=== PATIENT | female | born 1990 | race Caucasian/White ===

== ENCOUNTER 2017-08-30 19:09 | Emergency (ER) | payer OTHER ==
[2017-08-30] MEDS: ACETAMINOPHEN 500 MG TAB PO (20:58)
== END 2017-08-30 21:10 | disposition home or self-care (01) ==
LOC: FTE 19:09
DX: B34.9 Viral infection, unspecified (principal)
CPT/HCPCS: 99284; Z7502

== ENCOUNTER 2017-11-28 13:17 | Emergency (ER) | payer OTHER | END 2017-11-28 13:32 | disposition home or self-care (01) | LOC: E/R 13:17 | DX: J06.9 Acute upper respiratory infection, unspecified (principal); R35.0 Frequency of micturition | CPT/HCPCS: 99284; Z7502 ==

== ENCOUNTER 2017-12-01 09:00 | Emergency (ER) | payer OTHER | END 2017-12-01 12:42 | disposition left against medical advice (07) | LOC: FTE 12:42 | DX: R05 Cough (principal) | CPT/HCPCS: 99282; Z7502 ==

== ENCOUNTER 2018-04-06 11:23 | Emergency (ER) | payer OTHER | END 2018-04-06 12:31 | disposition home or self-care (01) | LOC: FTE 11:23 | DX: J06.9 Acute upper respiratory infection, unspecified (principal) | CPT/HCPCS: 99284; Z7502 ==

== ENCOUNTER 2018-04-13 19:02 | Emergency (ER) | payer SELFPAY, OTHER | END 2018-04-13 20:57 | disposition left against medical advice (07) | LOC: FTE 19:02 | DX: Z53.21 Procedure and treatment not carried out due to patient leaving prior to being seen by health care provider (principal) ==

== ENCOUNTER 2018-06-15 19:00 | Emergency (ER) | payer OTHER ==
[2018-06-15 22:09] LABS: ADD UMIC YES; UR ASCORBIC ACID NEGATIVE (NEGATIVE); UR BILIRUBIN (Dip) NEGATIVE (NEGATIVE); UR BLOOD (Dip) NEGATIVE (NEGATIVE); UR CLARITY CLEAR (CLEAR); UR COLOR STRAW (YELLOW); UR GLUCOSE (Dip) NEGATIVE (NEGATIVE); UR KETONES (Dip) NEGATIVE (NEGATIVE); UR LEUKOCYTE ESTERASE (Dip) TRACE Leu/ul (NEGATIVE); UR NITRITE (Dip) NEGATIVE (NEGATIVE); UR RBC 3 /HPF (0-5); UR SPECIFIC GRAVITY (Dip) 1.004 (1.003-1.030); UR TOTAL PROTEIN (Dip) NEGATIVE (NEGATIVE); UR UROBILINOGEN (Dip) NEGATIVE (NEGATIVE); UR WBC 1 /HPF (0-5)
== END 2018-06-15 23:15 | disposition home or self-care (01) ==
LOC: FTE 19:00
DX: M54.5 Low back pain (principal); J02.9 Acute pharyngitis, unspecified; R10.2 Pelvic and perineal pain
CPT/HCPCS: 81001; 81025; 87086; 87400; 87880; 99283

== ENCOUNTER 2018-06-27 18:50 | Emergency (ER) | payer OTHER | END 2018-06-27 22:59 | disposition home or self-care (01) | LOC: FTE 18:50 | DX: S53.401A Unspecified sprain of right elbow, initial encounter (principal); X50.0XXA Overexertion from strenuous movement or load, initial encounter; Y92.89 Other specified places as the place of occurrence of the external cause | CPT/HCPCS: 99282 ==

== ENCOUNTER 2018-07-22 13:28 | Emergency (ER) | payer OTHER ==
[2018-07-22] MEDS: KETOROLAC 60 MG INJ IM (14:01)
[2018-07-22] MEDS: DEXAMETHASONE 10 MG/ML 1 ML INJ IM (15:10)
[2018-07-22] MEDS: IPRATROPIUM (NEB) 0.5 MG/2.5 ML AMP HHN (15:21)
[2018-07-22] MEDS: ALBUTEROL 0.083% (NEB) 2.5 MG/3 ML AMP HHN (15:21)
== END 2018-07-22 16:04 | disposition home or self-care (01) ==
LOC: FTE 13:28
DX: J18.9 Pneumonia, unspecified organism (principal)
CPT/HCPCS: 71045; 94664; 96372; 99284-25

== ENCOUNTER 2018-07-27 11:28 | Emergency (ER) | payer OTHER | END 2018-07-27 13:07 | disposition home or self-care (01) | LOC: FTE 11:28 | DX: R05 Cough (principal); R11.10 Vomiting, unspecified; R40.2412 Glasgow coma scale score 13-15, at arrival to emergency department; J45.909 Unspecified asthma, uncomplicated | CPT/HCPCS: 99283 ==

== ENCOUNTER 2018-12-29 19:46 | Emergency (ER) | payer OTHER | END 2018-12-30 01:30 | disposition left against medical advice (07) | LOC: FTE 12-30 01:30 | DX: R05 Cough (principal); J45.909 Unspecified asthma, uncomplicated | CPT/HCPCS: 99283; Z7502 ==